=== PATIENT | female | born 1975 | race Caucasian/White ===

== ENCOUNTER → 2016-09-06 | Outpatient (CLI) | payer BC ==
[~2016-09-06] MED LIST: ADVIN10/60 INH; ALBU18002 INH; ALBU1AER9 INH; AMPH15CA7 PO; AMPH30CA3 PO; ANT25 PO; DIAZ-165 PO; ESCI10TA17 PO; GABA-112 PO; HYDR-5688 PO; IBUP-103 PO; LURA40TA PO; PROP20TA67 PO; TRAZ100T29 PO
[2016-09-06 10:56] LABS: BASO % 0.3 %; BASO ABS # 0.03 K/uL (0-0.2); COMPLETE YES; HEMATOCRIT 42.4 % (37-47); IG% 0.1 %; LYMPH % 30.9 %; LYMPH ABS # 2.79 K/uL (1.2-3.4); MEAN CELL VOLUME 89.3 fL (80-100); MEAN CORPUSCULAR HEMOGLOBIN 30.3 pg (25-34); MEAN PLATELET VOLUME 9.7 fL (7.4-10.4); MONO % 6.8 %; NEUT % 55.9 %; PLATELET COUNT 324 K/uL (130-400); RED BLOOD COUNT 4.75 M/uL (4.2-5.4); WHITE BLOOD COUNT 9.02 K/uL (4.8-10.8)
[2016-09-06 11:20] LABS: BLOOD UREA NITROGEN 9 mg/dl (7-18); BUN/CREATININE RATIO 11.3 (10-20); CALCIUM 9.1 mg/dl (8.5-10.1); CARBON DIOXIDE 27 mmol/L (21-32); CHLORIDE 103 mmol/L (98-107); CHOLESTEROL 231 mg/dl (0-200); CREATININE 0.83 mg/dl (0.60-1.20); GLUCOSE 101 mg/dl (70-99); POTASSIUM 4.5 mmol/L (3.5-5.1); SODIUM 138 mmol/L (136-145); TRIGLYCERIDES 136 mg/dl (0-150); VERY LOW DENSITY LIPOPROT CALC 27 mg/dl
[2016-09-06 11:35] LABS: ALB/GLOB RATIO 0.9 (0.9-2); ALKALINE PHOSPHATASE 154 U/L (45-117); ALT/SGPT 123 U/L (12-78); AST/SGOT 53 U/L (15-37); CHOLESTEROL/HDL RATIO 3.4; HDL CHOLESTEROL 67 mg/dl; LDL CHOLESTEROL CALCULATED 137 mg/dl
== END | disposition home or self-care (01) ==
LOC: C.LABBC 08:16
PROVIDERS: ATTEND Hospitalist
DX: I10 Essential (primary) hypertension (principal); E78.00 Pure hypercholesterolemia, unspecified; R53.1 Weakness; E55.9 Vitamin D deficiency, unspecified; E53.8 Deficiency of other specified B group vitamins

== ENCOUNTER → 2016-09-09 | Outpatient (CLI) | payer BC ==
--- NOTE | 2016-09-09 10:07 | DIAGNOSTIC IMAGING REPORT ---
BILIARY ULTRASOUND CLINICAL HISTORY: ABNORMAL LFT'S COMPARISON STUDY: 02/12/2014 FINDINGS: The pancreas appears sonographically normal. No focal hepatic masses are visualized. The gallbladder appears sonographically normal. There is no ductal dilatation. The common bile duct measures 4 mm. There is no right-sided hydronephrosis. IMPRESSION: Normal biliary ultrasound. Electronically signed by: Mike Jasmine M.D. 09/09/2016 10:05 AM Dictated Date/Time: 09/09/2016 10:05 AM
== END | disposition home or self-care (01) ==
LOC: C.ULTR 09:09
PROVIDERS: ATTEND Hospitalist
DX: R94.5 Abnormal results of liver function studies (principal)

== ENCOUNTER → 2016-10-03 | Outpatient (CLI) | payer BC ==
[2016-10-03 11:24] LABS: ALT/SGPT 19 U/L (12-78); AST/SGOT 13 U/L (15-37); BLOOD UREA NITROGEN 11 mg/dl (7-18); BUN/CREATININE RATIO 11.1 (10-20); CALCIUM 8.7 mg/dl (8.5-10.1); CARBON DIOXIDE 29 mmol/L (21-32); CHLORIDE 102 mmol/L (98-107); GLUCOSE 113 mg/dl (70-99); POTASSIUM 3.7 mmol/L (3.5-5.1); SODIUM 139 mmol/L (136-145)
[2016-10-03 11:27] LABS: ALB/GLOB RATIO 0.9 (0.9-2); ALKALINE PHOSPHATASE 95 U/L (45-117)
== END | disposition home or self-care (01) ==
LOC: C.LABBC 07:59
PROVIDERS: ATTEND Hospitalist
DX: I10 Essential (primary) hypertension (principal)

== ENCOUNTER 2016-12-10 14:04 | Emergency (ER) | payer BC ==
[~2016-12-10] VITALS: Ht 165.1 cm; Wt 84.8 kg
[~2016-12-10 14:04] MED LIST changes: -ALBU18002 INH; -AMPH15CA7 PO; -AMPH30CA3 PO; -DIAZ-165 PO; -ESCI10TA17 PO; -GABA-112 PO; -LURA40TA PO; -PROP20TA67 PO; -TRAZ100T29 PO
[2016-12-10 14:07] VITALS: TEMP 36.4; Ht 165.1 cm; Wt 84.8 kg
[2016-12-10] MEDS ORDERED: AMPH30CA3 PO (14:26)
[2016-12-10] MEDS ORDERED: AMPH15CA7 PO (14:26)
[2016-12-10] MEDS ORDERED: ESCI10TA17 PO (14:26)
[2016-12-10] MEDS ORDERED: TRAZ100T29 PO (14:26)
[2016-12-10] MEDS ORDERED: LURA40TA PO (14:26)
[2016-12-10] MEDS ORDERED: GABA-112 PO (14:26)
[2016-12-10] MEDS ORDERED: ALBU18002 INH (14:26)
[2016-12-10] MEDS ORDERED: PROP20TA67 PO (14:27)
[2016-12-10] MEDS ORDERED: KETOROLAC TROMETHAMINE 60 MG/2 ML VIAL IM STA (14:34)
[2016-12-10] MEDS ORDERED: DIAZEPAM INJ 5 MG/ML 2 ML CARP IM STA (14:34)
--- NOTE | 2016-12-10 15:06 | EMERGENCY ROOM VISIT NOTE ---
History First contact with patient: 14:19 Chief Complaint: NECK PAIN Stated Complaint: SEVERE NECK PAIN, MORES, NAUSEA, VOMITING History of Present Illness The patient is a 41 year old female who presents to the Emergency Room with complaints of neck pain, nausea and vomiting. The patient reports that her neck discomfort started yesterday. She reports that her neck also feels really tight. She also has a mild headache. The patient has a history of migraines, and reports that the headache is similar, however usually does not have neck pain with her migraines. She also has not noticed any photophobia or phonophobia. She denies any recent sinus congestion, sore throat or cough. Her pain is worsened with movement of the neck. She rates her discomfort an 8 out of 10. The patient reports that she took some old Zanaflex and ibuprofen without relief. Review of Systems 10 system review was performed and was negative except for pertinent positives and negatives as indicated in history of present illness Past Medical/Surgical History Medical Problems: (1) Depressive Disorder Nec (2) Sarcoidosis (3) Tobacco Use Disorder (4) Ulcerative colitis Surgical Problems: (1) History of abdominal hysterectomy (2) History of oophorectomy, unilateral (3) History of unilateral salpingectomy Family History Unremarkable Social History Smoking Status: Current Every Day Smoker Alcohol Use: occasionally Drug Use: none Housing Status: lives with roommate Occupation Status: employed Current/Historical Medications Scheduled Amphetamine-Dextroamphetamine 15MG (Adderall Xr 15MG), 15 MG PO DAILY Amphetamine-Dextroamphetamine 30MG (Adderall Xr 30MG), 30 MG PO DAILY Escitalopram (Lexapro), 10 MG PO DAILY Fluticasone Prop/Salmeterol (Advair Diskus 100/50 60 Dose), 1 PUFF INH BID Gabapentin (Neurontin), 100 MG PO TID Lurasidone Hcl (Latuda), 20 MG PO BID Propranolol (Inderal), 30 MG PO DAILY Trazodone Hcl (Trazodone), 100 MG PO BID Scheduled PRN Albuterol Sulfate (Proair Respiclick), 2 PUFFS INH Q4H PRN for Wheezing Ibuprofen Tab (Advil), 400-600 MG PO Q6H PRN for Pain Meclizine HCl (Meclizine HCl), 25 MG PO TID PRN for Dizziness or Vertigo Allergies Coded Allergies: Lamotrigine (Verified Allergy, Intermediate, HIVES, 12/10/16) Varenicline (Unverified Allergy, Intermediate, swelling, 12/10/16) Vancomycin (Verified Allergy, Mild, HIVES, 12/10/16) Physical Exam Vital Signs Date Time Temp Pulse Resp B/P Pulse Ox O2 Delivery O2 Flow Rate FiO2 12/10/16 14:07 36.4 80 16 113/79 99 Room Air Physical Exam CONSTITUTIONAL: Obese female, alert and oriented X 3 with positive affect. HEENT: Normocephalic, atraumatic. Pupils equal, round and reactive. Ears and nares are clear. No photophobia. OROPHARYNX: No posterior pharyngeal erythema, tonsillar hypertrophy or exudates. NECK: Examination shows notable tenderness to palpation of the cervical paraspinous muscles. She has mild discomfort through the right sternocleidomastoid as well. She has no significant tenderness to palpation through the central cervical spine. Negative Kernig's, negative Brudzinski sign. RESPIRATORY: Clear to auscultation bilaterally with no wheezing, crackles, rhonchi or stridor. CARDIOVASCULAR: Regular rate and rhythm with no murmurs, rubs or gallops. GASTROINTESTINAL: Bowel sounds present in all quadrants. Soft and nontender to palpation. MUSCULOSKELETAL: Full range of motion of all joints without discomfort. INTEGUMENTARY: No rash or other significant dermatologic conditions noted. NEUROLOGIC: Cranial nerves II-XII grossly intact. No focal neurologic deficits noted. No ataxia with ambulation. Negative pronator drift. Medical Decision & Procedures Medications Administered Medications (Trade) Dose Ordered Sig/Oskar Route Start Time Stop Time Status Last Admin Dose Admin Diazepam (Valium Inj) 5 mg NOW STAT IM 12/10/16 14:34 12/10/16 14:36 DC 12/10/16 14:45 5 MG Ketorolac Tromethamine (Toradol Inj) 60 mg NOW STAT IM 12/10/16 14:34 12/10/16 14:36 DC 12/10/16 14:45 60 MG ED Course Patient history and physical exam were performed. Nurse's notes were reviewed. Clinical exam and history are consistent with a cervical spasm. The patient was administered Valium 5 mg and Toradol 60 mg IM. It is noted that when I went in to light weight the patient, the hydroelectric plant technician was asking the patient about her home medications. The patient reports that she "has not taken Yolyn in a long time". Review of the [place] Prescription Drug Monitoring Program shows that the patient receives monthly supplies of Yolyn 7.5/325. Her last prescription filled was 08/03/16 for 60 tablets. This is prescribed by [facility] in [place]. When the patient told me that she was taking Zanaflex and Motrin at home, and denied having any other pain medications at home, she then admitted that she does have hydrocodone tablets at home. The patient was encouraged to continue with his Zanaflex and hydrocodone, and call her family doctor for further reevaluation and management. The patient was advised that the emergency department does not provide prescriptions since she is on a treatment plan. She will have to discuss further pain management with her family doctor. The patient reports that she did talk with her PCP about her neck and back pain, and is supposed to have x-rays of her back in the near future. The patient reports that the Valium did help with her pain, rating her pain a 4 out of 10 at the time of discharge. I do question whether the patient is here seeking narcotics. A friend who was with her also had mentioned, "Can you give her a shot of something for pain?" The patient also lied to our hydroelectric plant technician about not having narcotic analgesics for her use. I do feel that she does need to be placed on our watch list for future narcotic seeking behavior. Impression Primary Impression: Cervical paraspinal muscle spasm Departure Information Dispostion Home / Self-Care Forms HOME CARE DOCUMENTATION FORM, IMPORTANT VISIT INFORMATION Patient Instructions My [email or web address] Additional Instructions Ibuprofen 600 mg every 6-8 hours. Continue with your home Zanaflex and hydrocodone for pain. Continue intermittently applying heat to the neck. Follow-up with your family doctor for further management.
[2016-12-10 15:14] VITALS: BP 101/64; PULSE 69; O2SAT 97
== END 2016-12-10 15:16 | disposition home or self-care (01) ==
LOC: C.EDB 14:06 → C.EDD 15:16
DX: M62.838 Other muscle spasm (principal); M54.2 Cervicalgia; F32.9 Major depressive disorder, single episode, unspecified; D86.9 Sarcoidosis, unspecified; K51.90 Ulcerative colitis, unspecified, without complications; F17.210 Nicotine dependence, cigarettes, uncomplicated; Z79.899 Other long term (current) drug therapy

== ENCOUNTER 2016-12-12 13:56 | Emergency (ER) | payer BC ==
[~2016-12-12] VITALS: Ht 165.1 cm; Wt 82.9 kg
[~2016-12-12 13:56] MED LIST changes: +ALBU18002 INH; +AMPH15CA7 PO; +AMPH30CA3 PO; +ESCI10TA17 PO; +GABA-112 PO; +LURA40TA PO; +PROP20TA67 PO; +TRAZ100T29 PO
[2016-12-12 14:00] VITALS: TEMP 36.6; Ht 165.1 cm; Wt 82.9 kg
[2016-12-12] MEDS ORDERED: DEXAMETHASONE CONC 1 MG/ML 30 ML PO STA (14:29)
[2016-12-12] MEDS ORDERED: KETOROLAC TROMETHAMINE 60 MG/2 ML VIAL IM STA (14:29)
[2016-12-12] MEDS ORDERED: LIDODERM (LIDOCAINE) PATCH 5% TD STA (14:29)
[2016-12-12] MEDS ORDERED: DIAZEPAM 5MG TAB PO ONE (14:30)
[2016-12-12] MEDS ORDERED: DEXAMETHASONE 4 MG TAB PO ONE (15:00)
[2016-12-12 16:30] VITALS: BP 103/62; PULSE 103; O2SAT 95
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
[2016-12-12] MEDS ORDERED: DIAZ-165 PO (16:51)
== END 2016-12-12 16:57 | disposition home or self-care (01) ==
LOC: C.EDB 13:57 → C.EDC 16:57
DX: M54.2 Cervicalgia (principal); F32.9 Major depressive disorder, single episode, unspecified; D86.9 Sarcoidosis, unspecified; F17.200 Nicotine dependence, unspecified, uncomplicated; Z90.710 Acquired absence of both cervix and uterus; Z83.3 Family history of diabetes mellitus; Z82.49 Family history of ischemic heart disease and other diseases of the circulatory system; Z84.1 Family history of disorders of kidney and ureter

== ENCOUNTER → 2017-03-28 | Outpatient (CLI) | payer BC ==
[~2017-03-28] MED LIST changes: -ALBU1AER9 INH; +DIAZ-165 PO; -HYDR-5688 PO
--- NOTE | 2017-03-29 07:55 | MAMMOGRAPHY REPORT ---
BILATERAL DIGITAL SCREENING MAMMOGRAM TOMOSYNTHESIS WITH CAD: 03/28/2017 CLINICAL HISTORY: Baseline examination. Routine screening. Patient has no complaints. TECHNIQUE: Breast tomosynthesis in addition to standard 2D mammography was performed. Current study was also evaluated with a Computer Aided Detection (CAD) system. COMPARISON: No prior exams were available for comparison. BREAST COMPOSITION: The tissue of both breasts is heterogeneously dense, which may obscure small mas ses. FINDINGS: No suspicious mass, architectural distortion or cluster of microcalcifications is seen. IMPRESSION: ACR BI-RADS CATEGORY 1: NEGATIVE There is no mammographic evidence of malignancy. A 1 year screening mammogram is recommended. The pa tient will receive written notification of the results. Approximately 10% of breast cancers are not detected with mammography. A negative mammographic report should not delay biopsy if a clinically suggestive mass is present. Julienne olson/torey:03/28/2017 17:02:28 Crew Truck Driver: Lizeth LEBLANCR, M, [facility] letter sent: Normal 1/2 BI-RADS Code: ACR BI-RADS Category 1: Negative
== END | disposition home or self-care (01) ==
LOC: C.MAMM 09:00
PROVIDERS: ATTEND Hospitalist
DX: Z12.31 Encounter for screening mammogram for malignant neoplasm of breast (principal)

== ENCOUNTER 2017-06-09 09:08 | Emergency (ER) | payer BC ==
[~2017-06-09] VITALS: Ht 165.1 cm; Wt 75.3 kg
[2017-06-09 09:10] VITALS: TEMP 36.8; Ht 165.1 cm; Wt 75.3 kg
[2017-06-09] MEDS ORDERED: AMPH20TA2 PO (09:29)
[2017-06-09] MEDS ORDERED: HYDR-3714 PO (09:29)
[2017-06-09] MEDS ORDERED: PENI-82 PO (09:54)
[2017-06-09 10:03] VITALS: BP 119/85; PULSE 80; O2SAT 100
--- NOTE | 2017-06-09 17:07 | EMERGENCY ROOM VISIT NOTE ---
History First contact with patient: 09:35 Chief Complaint: DENTAL PAIN Stated Complaint: TOOTHACHE Nursing Triage Summary: left lower dental pain needs to change dentist. History of Present Illness The patient is a 41 year old female who presents to the Emergency Room with complaints of left lower dental pain. The patient reports that her pain started yesterday, and has progressively worsened. She has not noticed any drainage or facial swelling. The patient reports that her insurance recently changed. She has had a complete right mandibular dental extraction, and was told that this needed to heal before she had a complete left mandibular dental extraction in preparation for dentures. Because of her change in insurance, she has not had a chance to find a new dentist or oral surgeon. The patient is requesting an antibiotic prescription, and is questioning what to do for pain since she is already taking hydrocodone as prescribed by her PCP. She rates her discomfort a 6 out of 10. Review of Systems 10 system review was performed and was negative except for pertinent positives and negatives as indicated in history of present illness Past Medical/Surgical History Medical Problems: (1) Depressive Disorder Nec (2) Sarcoidosis (3) Tobacco Use Disorder (4) Ulcerative colitis Surgical Problems: (1) History of abdominal hysterectomy (2) History of oophorectomy, unilateral (3) History of unilateral salpingectomy Family History Diabetes mellitus Heart disease Hypertension Kidney disease Kidney stones Social History Smoking Status: Current Every Day Smoker Alcohol Use: occasionally Drug Use: none Housing Status: lives with roommate Occupation Status: employed Current/Historical Medications Scheduled Amphetamine-Dextroamphetamine 20MG (Adderall 20MG), 20 MG PO AFTERNOON Amphetamine-Dextroamphetamine 30MG (Adderall Xr 30MG), 30 MG PO QAM Escitalopram (Lexapro), 10 MG PO DAILY Fluticasone Prop/Salmeterol (Advair Diskus 100/50 60 Dose), 1 PUFF INH BID Lurasidone Hcl (Latuda), 20 MG PO BID Penicillin V Potassium (Veetids), 500 MG PO QID Propranolol (Inderal), 30 MG PO DAILY Scheduled PRN Albuterol Sulfate (Proair Respiclick), 2 PUFFS INH Q4H PRN for Wheezing Hydrocodon/Acetaminophen 7.5MG/300MG (Vicodin Es (7.5MG/300MG)), 1 TAB PO Q4 PRN for Pain Physical Exam Vital Signs Date Time Temp Pulse Resp B/P (MAP) Pulse Ox O2 Delivery O2 Flow Rate FiO2 06/09/17 10:03 80 20 119/85 100 06/09/17 09:10 36.8 82 18 124/76 95 Room Air Physical Exam CONSTITUTIONAL: Healthy and well nourished. Alert and oriented X 3 with positive affect. HEENT: Normocephalic, atraumatic. Pupils equal, round and reactive. No facial edema or erythema noted. OROPHARYNX: Examination of the left mandibular region does not show any obvious gingival erythema, fluctuance or pointing. It and so or Jalen's angina or retropharyngeal abscess. NECK: Full active range of motion without discomfort. LYMPHATICS: No cervical chain, submandibular or submental adenopathy noted. RESPIRATORY: Clear to auscultation bilaterally with no wheezing, crackles, rhonchi or stridor. CARDIOVASCULAR: Regular rate and rhythm with no murmurs, rubs or gallops. INTEGUMENTARY: No rash or other significant dermatologic conditions noted. NEUROLOGIC: Facial sensations are intact. Medical Decision & Procedures ED Course Patient history and physical exam were performed. Nurse's notes were reviewed. Vital signs were reviewed and were normal. Review of the [place] Prescription Drug Monitoring Program shows that the patient does receive monthly prescriptions for hydrocodone 7.5/325 from [facility]. Her last prescription was filled on 05/12/17. The patient reports that she has had to take more pain medications over the past few days, and reports that her family doctor's office closes at noontime today. The patient was advised that the emergency department does not provide opioid prescriptions when she is currently on chronic pain management. She will need to discuss this further with her PCP, otherwise was provided a prescription for Pen-Vee K 500 mg 4 times a day 10 days, and encouraged to alternate ibuprofen and Tylenol as needed for additional pain relief. She is welcome to return for any developing/ worsening infection, otherwise will need to find a dentist/oral surgeon for further reevaluation and management. The patient was happy with plan of care, voiced understanding of all discharge instructions, refused any analgesics prior to discharge, and rated her discomfort a 5 out of 10 at the completion of my exam. Medical Decision [place] Drug Monitoring Program Search Results: patient reviewed within database, see additional documentation Medication Reconcilliation Current Medication List: was personally reviewed by me Blood Pressure Screening Patient's blood pressure: Normal blood pressure Impression Primary Impression: Pain, dental Departure Information Dispostion Home / Self-Care Prescriptions Penicillin V Potassium (Veetids) 500 Mg Tab 500 MG PO QID, #40 TAB Prov: Adria Galvez PA 06/09/17 Forms HOME CARE DOCUMENTATION FORM, IMPORTANT VISIT INFORMATION Patient Instructions My [facility] Additional Instructions Complete all Pen-Vee K antibiotics as prescribed. Ibuprofen 800 mg and/or Tylenol 1000 mg every 8 hours. You may also alternate these medications for more effective pain relief: Ibuprofen --4 HRS--> Tylenol --4 HRS--> ibuprofen --4 HRS--> Tylenol .... Take your home pain medications if needed for additional pain relief. Findings dentist/oral surgeon for further management. The emergency department does not provide opioid prescriptions when you are currently being treated for chronic pain. You will need to call your family doctor as needed for further prescription refills.
== END 2017-06-09 10:05 | disposition home or self-care (01) ==
LOC: C.EDB 09:10
DX: K08.89 Other specified disorders of teeth and supporting structures (principal); F32.9 Major depressive disorder, single episode, unspecified; D86.9 Sarcoidosis, unspecified; K51.90 Ulcerative colitis, unspecified, without complications; F17.200 Nicotine dependence, unspecified, uncomplicated; Z90.710 Acquired absence of both cervix and uterus; Z90.722 Acquired absence of ovaries, bilateral; Z79.51 Long term (current) use of inhaled steroids; Z83.3 Family history of diabetes mellitus; Z82.49 Family history of ischemic heart disease and other diseases of the circulatory system; Z84.1 Family history of disorders of kidney and ureter

== ENCOUNTER 2017-10-17 13:52 | Emergency (ER) | payer BC ==
[~2017-10-17] VITALS: Ht 165.1 cm; Wt 69.1 kg
[~2017-10-17 13:52] MED LIST changes: -AMPH15CA7 PO; +AMPH20TA2 PO; -ANT25 PO; -DIAZ-165 PO; -GABA-112 PO; +HYDR-3714 PO; -IBUP-103 PO; +PENI-82 PO; -TRAZ100T29 PO
[2017-10-17 13:56] VITALS: TEMP 36.7; Ht 165.1 cm; Wt 69.1 kg
[2017-10-17] MEDS ORDERED: SODIUM CHLORIDE 0.9% 1000ML 1,000 ML IV STA (14:31)
[2017-10-17] MEDS ORDERED: ALBUTEROL 0.083% NEBU SOLN 3 ML VIAL INH STA (14:31)
[2017-10-17] MEDS ORDERED: KETOROLAC TROMETHAMINE 30 MG/ML VIAL IV STA (14:31)
[2017-10-17] MEDS ORDERED: BENZONATATE 100MG CAP PO ONE (14:45)
[2017-10-17 14:58] LABS: BASO % 0.5 %; BASO ABS # 0.03 K/uL (0-0.2); EOS % 2.1 %; EOS ABS # 0.14 K/uL (0-0.5); HEMATOCRIT 40.6 % (37-47); HEMOGLOBIN 14.1 g/dL (12.0-16.0); IG# 0.01 K/uL (0.00-0.02); LYMPH % 21.9 %; LYMPH ABS # 1.43 K/uL (1.2-3.4); MEAN CELL VOLUME 87.5 fL (80-100); MEAN CORPUSCULAR HEMOGLOBIN 30.4 pg (25-34); MEAN CORPUSCULAR HGB CONC 34.7 g/dl (32-36); MEAN PLATELET VOLUME 9.4 fL (7.4-10.4); MONO % 5.7 %; MONO ABS # 0.37 K/uL (0.11-0.59); NEUT % 69.6 %; NEUT ABS # 4.54 K/uL (1.4-6.5); PLATELET COUNT 318 K/uL (130-400); RED CELL DISTRIBUTION WIDTH CV 12.7 % (11.5-14.5); RED CELL DISTRIBUTION WIDTH SD 40.7 fL (36.4-46.3); WHITE BLOOD COUNT 6.52 K/uL (4.8-10.8)
[2017-10-17 15:17] LABS: BLOOD UREA NITROGEN 7 mg/dl (7-18); CALCIUM 9.3 mg/dl (8.5-10.1); CARBON DIOXIDE 27 mmol/L (21-32); CREATININE 0.71 mg/dl (0.60-1.20); GLUCOSE 99 mg/dl (70-99); POTASSIUM 3.8 mmol/L (3.5-5.1); SODIUM 139 mmol/L (136-145)
--- NOTE | 2017-10-17 15:26 | DIAGNOSTIC IMAGING REPORT ---
CHEST ONE VIEW PORTABLE CLINICAL HISTORY: Difficult chest pain COMPARISON STUDY: 02/12/2014 FINDINGS: The cardiac and mediastinal contours are normal. There is no evidence of focal pulmonary consolidation. There is no evidence of failure. No pleural effusions are visualized.[ There is a stable scoliosis. IMPRESSION: No active disease in the chest. Electronically signed by: Mike Jasmine M.D. 10/17/2017 3:25 PM Dictated Date/Time: 10/17/2017 3:25 PM
[2017-10-17 15:40] LABS: INFLUENZA B ANTIGEN Neg for Influ B (NEG)
[2017-10-17 16:36] VITALS: BP 120/78; PULSE 85; O2SAT 97
[2017-10-17] MEDS ORDERED: PRED50TA PO (16:38)
--- NOTE | 2017-10-17 19:28 | EMERGENCY ROOM VISIT NOTE ---
History Report prepared by Lenora: Sharron Reeves Under the Supervision of: Dr. Jaycob Iniguez D.O. First contact with patient: 14:26 Chief Complaint: SHORTNESS OF BREATH Stated Complaint: LARYNGITIS, DIFFICULTY BREATHING Nursing Triage Summary: sorethroat, feeling short of breath for the past 3 days History of Present Illness The patient is a 42 year old female who presents to the Emergency Room with complaints of worsening shortness of breath for the past 3 days. She states that she has also been losing her voice for the past 3 days. She reports a sore throat, dry cough, rhinorrhea, and congestion. Her symptoms worsen with laying flat and she states that she did not sleep well last night because she could not lay down. 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 This sensation has been constant for the past hour. She is feeling nauseated and thinks this is because she has not been eating much. She does have a history of asthma. Pt denies headache, change in vision, fevers, vomiting , diarrhea, pain with urination, and melena. She denies any personal or family history of heart disease. She denies any personal history of COPD. Source of History: patient Onset: 3 days ago Position: chest Quality: other (shortness of breath) Timing: worsening Modifying Factors (Worsening): other (laying flat) Associated Symptoms: + sorethroat, + cough, + chest pain, + nausea, No fevers, No headache, No vomiting, No melena, No diarrhea, No urinary symptoms Note: Pt notes losing her voice, rhinorrhea, and congestion. Review of Systems See HPI for pertinent positives & negatives. A total of 10 systems reviewed and were otherwise negative. Past Medical & Surgical Medical Problems: (1) Depressive Disorder Nec (2) Sarcoidosis (3) Tobacco Use Disorder (4) Ulcerative colitis Surgical Problems: (1) History of abdominal hysterectomy (2) History of oophorectomy, unilateral (3) History of unilateral salpingectomy Family History Diabetes mellitus Heart disease Hypertension Kidney disease Kidney stones Social History Smoking Status: Current Every Day Smoker Alcohol Use: occasionally Drug Use: none Housing Status: lives with roommate Occupation Status: employed Current/Historical Medications Scheduled Amphetamine-Dextroamphetamine 20MG (Adderall 20MG), 20 MG PO AFTERNOON Amphetamine-Dextroamphetamine 30MG (Adderall Xr 30MG), 30 MG PO QAM Escitalopram (Lexapro), 10 MG PO DAILY Fluticasone Prop/Salmeterol (Advair Diskus 100/50 60 Dose), 1 PUFF INH BID Lurasidone Hcl (Latuda), 20 MG PO BID Prednisone (Prednisone), 50 MG PO DAILY Scheduled PRN Albuterol Sulfate (Proair Respiclick), 2 PUFFS INH Q4H PRN for Wheezing Allergies Coded Allergies: Lamotrigine (Verified Allergy, Intermediate, HIVES, 10/17/17) Varenicline (Unverified Allergy, Intermediate, swelling, 10/17/17) Vancomycin (Verified Allergy, Mild, HIVES, 10/17/17) Physical Exam Vital Signs Date Time Temp Pulse Resp B/P (MAP) Pulse Ox O2 Delivery O2 Flow Rate FiO2 10/17/17 16:36 85 18 120/78 97 Room Air 10/17/17 15:27 87 20 124/72 95 Room Air 10/17/17 13:56 36.7 92 18 118/80 98 Room Air Physical Exam GENERAL: Sitting up in bed, alert, talking in full sentences, well appearing, well nourished, no distress, non-toxic EYE EXAM: normal conjunctiva. OROPHARYNX: no exudate, no erythema, lips, buccal mucosa, and tongue normal and mucous membranes are moist NECK: supple, no nuchal rigidity, no adenopathy, non-tender, no JVD. LUNGS: Diffuse wheezing bilaterally. Normal chest wall mechanics HEART: no murmurs, S1 normal and S2 normal CHEST: Acute reproducible anterior chest wall pain - same as stated complaint. ABDOMEN: abdomen soft, non-tender, normo-active bowel sounds, no masses, no rebound or guarding. BACK: Back is symmetrical on inspection and there is no deformity, no midline tenderness, no CVA tenderness. SKIN: no rashes and no bruising UPPER EXTREMITIES: upper extremities are grossly normal. LOWER EXTREMITIES: No pitting edema, calves equal bilaterally. NEURO EXAM: Normal sensorium, cranial nerves II-XII grossly intact, normal speech, no gross weakness of arms, no gross weakness of legs. Medical Decision & Procedures ER Provider Diagnostic Interpretation: Radiology results as stated below per my review and the radiologist's interpretation: CHEST ONE VIEW PORTABLE CLINICAL HISTORY: Difficult chest pain COMPARISON STUDY: 02/12/2014 FINDINGS: The cardiac and mediastinal contours are normal. There is no evidence of focal pulmonary consolidation. There is no evidence of failure. No pleural effusions are visualized.[ There is a stable scoliosis. IMPRESSION: No active disease in the chest. Electronically signed by: Mike Jasmine M.D. 10/17/2017 3:25 PM Dictated Date/Time: 10/17/2017 3:25 PM Laboratory Results 10/17/17 14:50 Red Blood Count 4.64, Mean Corpuscular Volume 87.5, Mean Corpuscular Hemoglobin 30.4, Mean Corpuscular Hemoglobin Concent 34.7, Mean Platelet Volume 9.4, Neutrophils (%) (Auto) 69.6, Lymphocytes (%) (Auto) 21.9, Monocytes (%) (Auto) 5.7, Eosinophils (%) (Auto) 2.1, Basophils (%) (Auto) 0.5, Neutrophils # (Auto) 4.54, Lymphocytes # (Auto) 1.43, Monocytes # (Auto) 0.37, Eosinophils # (Auto) 0.14, Basophils # (Auto) 0.03 10/17/17 14:50 Test 10/17/17 14:40 10/17/17 14:50 Influenza Type A Antigen Neg for Influ A (NEG) Influenza Type B Antigen Neg for Influ B (NEG) White Blood Count 6.52 K/uL (4.8-10.8) Red Blood Count 4.64 M/uL (4.2-5.4) Hemoglobin 14.1 g/dL (12.0-16.0) Hematocrit 40.6 % (37-47) Mean Corpuscular Volume 87.5 fL (80-100) Mean Corpuscular Hemoglobin 30.4 pg (25-34) Mean Corpuscular Hemoglobin Concent 34.7 g/dl (32-36) Platelet Count 318 K/uL (130-400) Mean Platelet Volume 9.4 fL (7.4-10.4) Neutrophils (%) (Auto) 69.6 % Lymphocytes (%) (Auto) 21.9 % Monocytes (%) (Auto) 5.7 % Eosinophils (%) (Auto) 2.1 % Basophils (%) (Auto) 0.5 % Neutrophils # (Auto) 4.54 K/uL (1.4-6.5) Lymphocytes # (Auto) 1.43 K/uL (1.2-3.4) Monocytes # (Auto) 0.37 K/uL (0.11-0.59) Eosinophils # (Auto) 0.14 K/uL (0-0.5) Basophils # (Auto) 0.03 K/uL (0-0.2) RDW Standard Deviation 40.7 fL (36.4-46.3) RDW Coefficient of Variation 12.7 % (11.5-14.5) Immature Granulocyte % (Auto) 0.2 % Immature Granulocyte # (Auto) 0.01 K/uL (0.00-0.02) Anion Gap 7.0 mmol/L (3-11) Est Creatinine Clear Calc Drug Dose 100.8 ml/min Estimated GFR () 121.8 Estimated GFR (Non- 105.1 BUN/Creatinine Ratio 10.0 (10-20) Calcium Level 9.3 mg/dl (8.5-10.1) Troponin I < 0.015 ng/ml (0-0.045) Laboratory results per my review. Medications Administered Medications (Trade) Dose Ordered Sig/Oskar Route Start Time Stop Time Status Last Admin Dose Admin Sodium Chloride 1,000 ml @ 999 mls/hr Q1H1M STAT IV 10/17/17 14:31 10/17/17 15:31 DC 10/17/17 15:08 999 MLS/HR Benzonatate (Tessalon Perles Cap) 100 mg NOW ONCE PO 10/17/17 14:45 10/17/17 14:46 DC 10/17/17 15:10 100 MG Ketorolac Tromethamine (Toradol Inj) 15 mg NOW STAT IV 10/17/17 14:31 10/17/17 14:33 DC 10/17/17 15:10 15 MG Albuterol Sulfate (Ventolin 0.083% 2.5MG/3ML Neb) 2.5 mg NOW STAT INH 10/17/17 14:31 10/17/17 14:33 DC 10/17/17 15:09 2.5 MG ECG Per My Interpretation Indication: SOB/dyspnea Rate (beats per minute): 86 Rhythm: normal sinus Findings: no ectopy, other (normal axis) ED Course ED COURSE: Vital signs were reviewed and showed normal vitals. The patients medical record was reviewed The above diagnostic studies were performed and reviewed. ED treatments and interventions as stated above. 1426: The patient was evaluated in room B12B. A complete history and physical examination was performed. 1431: Albuterol sulfate 2.5 mg INH, Toradol 15 mg IV, NSS 1000 ml @ 999 mls/hr IV 1445: Tessalon Perles 100 mg PO 1636: Upon reevaluation, the patient is feeling better and has had complete resolution of her symptoms. I discussed my findings with the patient and she understands and agrees with the treatment plan. Based on the patients age, coexisting illnesses, exam and lab findings the decision to treat as an outpatient was made. The patient remained stable while under my care. The patient appeared well at the time of discharge. 1645: Prednisone 50 mg PO Medical Decision Differential diagnoses includes but is not limited to pneumonia, bronchitis, COPD/Asthma exacerbation, pneumothorax, pulmonary embolism, congestive heart failure, acute coronary syndrome. Patient is a 42-year-old that presents to ER for cough, runny nose and a sore throat which has been present for the past 2 days. She also admits to mild anterior chest wall pain which is present with coughing. This is reproducible on exam. Her shortness of breath and heaviness feel typical for her asthma exacerbations. CBC and BMP were unremarkable. Troponin was negative. EKG was unremarkable. Chest x-ray without infiltrate. Influenza was negative. Based on her symptoms I did give her Levaquin. After her neb treatment she had complete resolution of her shortness of breath and chest discomfort. I do favor this is likely related to an asthma exacerbation likely from a viral infection. I did not swab her as there were no exudates and history is consistent with a viral URI. Discussed with Pt concerning signs and symptoms to watch out for. Pt was instructed to follow up with their PCP and discussed with the patient their option to return to the ED at anytime for persistent or worsening symptoms. The appropriate anticipatory guidance and out-patient management, including indications for return to the emergency department, were explained at length to the patient and understood. Medication Reconcilliation Current Medication List: was personally reviewed by me Blood Pressure Screening Patient's blood pressure: Normal blood pressure Impression Primary Impression: URI (upper respiratory infection) Additional Impression: Asthma exacerbation Scribe Attestation The scribe's documentation has been prepared under my direction and personally reviewed by me in its entirety. I confirm that the note above accurately reflects all work, treatment, procedures, and medical decision making performed by me. Departure Information Dispostion Home / Self-Care Prescriptions Prednisone (PREDNISONE) 50 Mg Tab 50 MG PO DAILY for 4 Days, TAB Prov: Jaycob Iniguez, DO 10/17/17 Referrals No Doctor, Assigned (PCP) Forms HOME CARE DOCUMENTATION FORM, IMPORTANT VISIT INFORMATION Patient Instructions Asthma - [facility], [facility], Later [facility] Additional Instructions Please follow up with your primary care doctor with in the next 24 hours. Any worsening of your symptoms, please return to the ED immediately. This includes any fevers greater than 100.4, worsening pain, chest pain, shortness breath, persistent nausea, vomiting, unable to eat or drink, or any other concerning signs or symptoms from your standpoint. Problem Qualifiers Primary Impression: URI (upper respiratory infection) URI type: unspecified URI Qualified Codes: J06.9 - Acute upper respiratory infection, unspecified Additional Impression: Asthma exacerbation Asthma severity: unspecified severity Asthma persistence: unspecified Qualified Codes: J45.901 - Unspecified asthma with (acute) exacerbation
== END 2017-10-17 16:55 | disposition home or self-care (01) ==
LOC: C.EDB 13:55
DX: J06.9 Acute upper respiratory infection, unspecified (principal); J45.901 Unspecified asthma with (acute) exacerbation; F32.9 Major depressive disorder, single episode, unspecified; D86.9 Sarcoidosis, unspecified; Z83.3 Family history of diabetes mellitus; Z82.49 Family history of ischemic heart disease and other diseases of the circulatory system; F17.200 Nicotine dependence, unspecified, uncomplicated; Z88.8 Allergy status to other drugs, medicaments and biological substances